=== PATIENT | male | born 1955 | race Caucasian/White ===

== ENCOUNTER 2017-03-22 19:47 | Emergency (ER) | payer BC, OTHER ==
[~2017-03-22] VITALS: Ht 180.3 cm; Wt 78.5 kg
[~2017-03-22 19:47] MED LIST: ASPI1TAB2 PO; ATEN-173 PO; ATOR-24 PO; IBUP-1277 PO
[2017-03-22 19:50] VITALS: TEMP 36.7; Ht 180.3 cm; Wt 78.5 kg
[2017-03-22] MEDS ORDERED: LIDOCAINE 4% W/AFRIN NASAL SOLN 4ML EXT STA (20:01)
[2017-03-22] MEDS ORDERED: SILVER NITR/POTASSIUM NITRATE 10 APPLICATOR PACK EXT STA (20:01)
--- NOTE | 2017-03-22 20:07 | EMERGENCY ROOM VISIT NOTE ---
History Report prepared by [place]aco[place]: Cristine Ngo Under the Supervision of: Dr. Norris Bassett M.D. First contact with patient: 19:54 Chief Complaint: NOSE BLEED (MINOR) Stated Complaint: NOSEBLEED History of Present Illness The patient is a 61 year old male who presents to the Emergency Room with complaints of a constant nosebleed through his left nostril that started suddenly. The patient states that his nosebleeds started 3 days ago and he has had several incidents everyday since. He notes he had three episodes of nose bleeds today. The patient notes that his most recent nosebleed has lasted about an hour. He notes that his nose bleeds have started to drain into his throat. The patient is on aspirin and denies any trauma or possible injury to his nose. Source of History: patient Onset: three days ago Position: nose (left nostril ) Timing: other (persistent) Note: The pt notes left ear pressure. Review of Systems See HPI for pertinent positives & negatives. A total of 10 systems reviewed and were otherwise negative. Family History no pertinent family history stated Social History Smoking Status: Current Every Day Smoker Alcohol Use: none Drug Use: none Occupation Status: employed Current/Historical Medications Scheduled Aspirin (Aspirin), 325 MG PO DAILY Atenolol (Tenormin), 25 MG PO DAILY Atorvastatin (Lipitor), 40 MG PO DAILY Scheduled PRN Ibuprofen (Advil), 400-600 MG PO Q4H PRN for Pain Allergies Coded Allergies: No Known Allergies (Unverified , 03/22/17) Physical Exam Vital Signs Date Time Temp Pulse Resp B/P (MAP) Pulse Ox O2 Delivery O2 Flow Rate FiO2 03/22/17 21:21 80 18 128/78 96 03/22/17 19:50 36.7 82 16 137/83 96 Room Air Physical Exam GENERAL: Patient is in no acute distress. HEENT: No acute trauma, normocephalic atraumatic, mucous membranes moist, no nasal congestion, no blood running down back of throat, nasal clip in place, no scleral icterus. NECK: No stridor, no adenopathy, no meningismus, trachea is midline. LUNGS: Clear to auscultation bilaterally, no wheeze, no rhonchi, breath sounds equal. HEART: Without murmurs gallops or rubs, regular rate and rhythm. ABDOMEN: Soft, nontender, bowel sounds positive, no hernias, no peritonitis. EXTREMITIES: No cyanosis or edema, full range of motion of all the joints without pain or difficulty, no signs for acute trauma. NEUROLOGIC: Oriented x 3, no acute motor or sensory deficits, no focal weakness. SKIN: No rash, no jaundice, no diaphoresis. Medical Decision & Procedures Medications Administered Medications (Trade) Dose Ordered Sig/Gabriella Route Start Time Stop Time Status Last Admin Dose Admin Lidocaine HCl (Afrin W/ Lidocaine 4%) 4 ml NOW STAT EXT 03/22/17 20:01 03/22/17 20:02 DC 03/22/17 20:09 4 ML Silver Nitrate/ Potassium Nitrate (Silver Nitrate Applicators) 3 pkt NOW STAT EXT 03/22/17 20:01 03/22/17 20:02 DC 03/22/17 20:09 3 PKT Sodium Chloride ([place] Nasal [place]) 2 sprays NOW ONCE NA 03/22/17 21:15 03/22/17 21:16 DC 03/22/17 21:17 2 SPRAYS Procedure 2024: Left nostril cautery: using lidocaine and Afrin spray and then silver nitrate, the area of bleeding on the left was cauterized. No complications ED Course 1954: The patient was evaluated in room C10. A complete history and physical exam was performed. 2000: Silver Nitrate Applicators 3 pkt EXT, Lidocaine HCl 4 ml EXT. 2024: I cauterized the patient's left nostril. 2031: I reevaluated the patient, he is resting comfortably. 2108: I reevaluated the patient, he is ready to be discharged. 2114: Sodium Chloride 2 sprays NA. 2119: Reevaluated the patient. Discussed results and discharge instructions: He verbalized understanding and agreement. The patient is ready for discharge. Medical Decision Differential diagnosis includes but is not limited to anterior or posterior epistaxis, coagulopathy, anemia, uncontrolled hypertension. The patient presents with intermittent left-sided epistaxis. A nasal clip was in place when I entered the room. There was no blood running down the back of his throat. His blood pressure was controlled. He takes aspirin only, no Coumadin use. The patient had lidocaine and Afrin applied to the left side of the nose. A nasal clip was applied for 30 minutes. The patient is no longer having active nasal bleeding. There is an area that was bleeding along the left anterior nasal septum. As noted above, this was cauterized without complication, no further bleeding. The patient is being discharged home to return for any worsening symptoms. He was given instructions on how to care for further nasal bleeding. He will hold his aspirin for 3-4 days. Medication Reconcilliation Current Medication List: was personally reviewed by me Blood Pressure Screening Patient's blood pressure: Elevated blood pressure Blood pressure disposition: Elevated BP felt to be situational Impression Primary Impression: Left-sided epistaxis Scribe Attestation The scribe's documentation has been prepared under my direction and personally reviewed by me in its entirety. I confirm that the note above accurately reflects all work, treatment, procedures, and medical decision making performed by me. Departure Information Dispostion Home / Self-Care Referrals Eleuterio Dean M.D.([facility]) (PCP) Forms HOME CARE DOCUMENTATION FORM, IMPORTANT VISIT INFORMATION, WORK / SCHOOL INSTRUCTIONS Patient Instructions My [facility] Additional Instructions no stooping, straining or heavy lifting avoid hot showers use ocean spray to the nose to help keep it moist humidifier to the bedroom hold the aspirin for about 3 or so days if nose rebleeds, place the clip for 30 minutes, if continues to bleed, report to the ED
[2017-03-22] MEDS ORDERED: ASPI325T45 PO (20:30)
[2017-03-22] MEDS ORDERED: SODIUM CHLORIDE 0.65% NA SOLN 45 ML (OCEAN) ONE (21:15)
[2017-03-22 21:21] VITALS: BP 128/78; PULSE 80; O2SAT 96
== END 2017-03-22 21:25 | disposition home or self-care (01) ==
LOC: C.EDB 19:48 → C.EDC 21:25
DX: R04.0 Epistaxis (principal); Z79.82 Long term (current) use of aspirin; Z79.899 Other long term (current) drug therapy